=== PATIENT | male | born 1960 | race Caucasian/White ===

== ENCOUNTER 2024-01-03 18:40 | Inpatient (IN) | payer MEDICARE, SELFPAY ==
--- NOTE | 2024-01-03 18:49 | PC.NURSE ---
Pt. to the floor via EMS from [facility].
[2024-01-03 18:59] VITALS: BP 145/120; PULSE 67; RESP 20; TEMP 36.8; O2SAT 98
[2024-01-03 19:00] VITALS: BMI 38.2
--- NOTE | 2024-01-03 19:03 | XR_ITS ---
PROCEDURE INFORMATION: Exam: XR Chest Exam date and time: 01/03/2024 7:44 PM Age: 63 years old Clinical indication: Chest pressure and chest wall pain; Additional info: Chest pain TECHNIQUE: Imaging protocol: Radiologic exam of the chest. Views: 1 view. COMPARISON: No relevant prior studies available. FINDINGS: Lungs: No evidence of acute pulmonary disease or infiltrates Pleural spaces: No large effusion or pneumothorax. Heart/Mediastinum: No evidence of mediastinal widening or cardiac silhouette enlargement; the mediastinum and heart appear within normal limits for contour and size. Bones/joints: No evidence of acute osseous abnormalities within the visualized portions of the thoracic spine and ribs. Osseous structures appear appropriate for patient age. IMPRESSION: No dense parenchymal consolidation, pleural effusion, or pneumothorax.
[2024-01-03 19:30] LABS: Basophils # 0.1 K/mm3 (0-0.2); Basophils % 1.2 % (0.1-2.0); Eosinophils # 0.3 K/mm3 (0.0-0.4); Hematocrit 55.8 % (42.0-52.0); Lymphocytes # 2.5 K/mm3 (0.7-4.5); Lymphocytes % 22.6 % (10-50); Mean Corpuscular HGB Conc 32.5 g/dL (31.8-35.4); Mean Corpuscular Hemoglobin 34.4 pg (27.0-31.2); Mean Corpuscular Volume 105.9 fl (80-94); Mean Platelet Volume 8.1 fl (7.4-10.4); Monocytes # 0.7 K/mm3 (0.1-1.0); Monocytes % 6.2 % (1.7-9.3); Neutrophils # 7.4 K/mm3 (1.8-7.8); Platelet Count 374 K/mm3 (142-424); Red Blood Count 5.27 M/mm3 (4.60-6.20); Red Cell Distribution Width 13.5 % (11.5-17.5); White Blood Count 11.1 K/mm3 (4.8-10.8)
[2024-01-03 19:41] LABS: Anion Gap 12.1 mEq/L (5-15); Blood Urea Nitrogen 18 mg/dl (9-20); Calcium 9.3 mg/dl (8.4-10.2); Carbon Dioxide 27 mmol/L (22.0-30.0); Chloride 103 mmol/L (98-107); Creatinine Clearance Estimated 132 mL/min (50-200); Estimated Glomerular Filt Rate 67 ml/min (>60); GFR (African American) 81 ML/MIN (>60); Glucose 106 mg/dl (74-100); Lactic Acid 1.3 mmol/L (0.7-2.1); Potassium 5.1 mmoL/L (3.5-5.1); Sodium 137 mmol/L (136-145)
[2024-01-03] MEDS: HEPARIN SODIUM 5,000 UNIT/ML VIAL 5000 UNIT SQ (19:42)
[2024-01-03 19:43] LABS: Hemoglobin 18.1 g/dL (14.1-18.0)
--- NOTE | 2024-01-03 19:49 | P.HP_ITS ---
Attending attestation Patient was seen and evaluated at the bedside myself, agree with NAVDEEP note. History of Present Illness *Admission Date: 01/03/24 *Reason for visit:: headache *History of present illness: This is a 63-year-old male smoker with history of hypertension, atrial fibrillation HLD, who came to the ER at [facility], complaining of headache and high blood pressure. Patient stated that he forgets to claim his last 3 months medication supply. Went to the pharmacy today and found his blood pressure was 215 mmHg systolic. On arrival to the ER blood pressure was too high on atrial fibrillation with RVR. Patient denied having chest pain palpitation shortness of breath. No neurological deficits. Troponin was drawn and found to be elevated requesting transfer to our facility for cardiology eval. admitted for further workup and treatment [facility] Disclaimer: The information contained in this section may have been updated after the jacquelyn estevez was seen, as this information can be updated by other users. Medical History (Updated 01/04/24 @ 00:39 by Roel Lr APRN) Atrial fibrillation Hypertension Prediabetes Surgical History (Updated 01/03/24 @ 19:38 by Celine Staley RN) H/O splenectomy Family History (Updated 01/03/24 @ 19:38 by Celine Staley RN) Father Prostate cancer Social History (Updated 01/03/24 @ 19:39 by Celine Staley RN) Smoking Status: Current every day smoker alcohol intake: never current occupational status: retired Travel in the last 8 weeks: None Review of Systems Review of Systems Review of systems:: pertinent systems reviewed and negative unless documented below Meds Home Medications and Allergies Home Medications Medication Instructions Recorded Confirmed Type amlodipine 10 mg-benazepril 20 mg 1 cap PO DAILY HTN 01/03/24 01/03/24 History capsule apixaban 5 mg tablet (Eliquis) 5 mg PO BID 01/03/24 01/03/24 History New Prescriptions to Start Prescriptions: Allergies Allergy/AdvReac Type Severity Reaction Status Date / Time No Known Allergies Allergy Verified 01/03/24 19:39 Exam Data for Last 24 hours Vital signs and Labs for Last 24 Hours: Temp Pulse Resp BP Pulse Ox O2 Del Method 98.2 F 67 20 145/120 H 98 Room Air 01/03/24 18:59 01/03/24 18:59 01/03/24 18:59 01/03/24 18:59 01/03/24 18:59 01/03/24 18:59 Laboratory Results - last 24 hr 01/03/24 19:20: WBC 11.1 H, RBC 5.27, Hgb 18.1 H, Hct 55.8 H, MCV 105.9 H, MCH 34.4 H, MCHC 32.5, RDW 13.5, Plt Count 374, MPV 8.1, Neut % (Auto) 67.0, Lymph % (Auto) 22.6, [place] % (Auto) 6.2, Eos % (Auto) 3.0, Baso % (Auto) 1.2, Neut # (Auto) 7.4, Lymph # (Auto) 2.5, [place] # (Auto) 0.7, Eos # (Auto) 0.3, Baso # (Auto) 0.1, Sodium 137, Potassium 5.1, Chloride 103, Carbon Dioxide 27, Anion Gap 12.1, BUN 18, Creatinine 1.10, Estimated Creat Clear 132, Estimated GFR 67, Est GFR ( Amer) 81, Glucose 106 H, Lactate 1.3, Calcium 9.3 I & O for Last 24 hours: Intake & Output 12/31/23 01/01/24 01/02/24 01/03/24 23:59 23:59 23:59 23:59 Weight 138.913 kg Constitutional Constitutional: mild distress, obese and cooperative *Routine HEENT Exam Head: Present normocephalic and atraumatic Eye: Present EOMI, PERRL and normal accommodation ENT: Present mucous membranes moist *Routine Neck Exam Neck: Present supple and full ROM; Absent trachea midline *Routine Respiratory Exam Respiratory: Present CTA bilaterally, normal respiratory effort and symmetric chest movement; Absent respiratory distress *Routine Cardiovascular Exam Cardiovascular: Present Normal S1, Normal S2, tachycardia and irregularly irregular *Routine Abdominal Exam Abdominal: Present soft and normoactive bowel sounds; Absent tenderness *Routine Rectal Exam Rectal:: deferred *Routine Genitalia Exam Genitalia:: deferred *Routine Extremities Exam Extremities: Present full ROM and pulses intact; Absent cyanosis, clubbing or edema *Routine Skin Exam Skin: Present intact and warm; Absent erythema or rash *Routine Neurological Exam Neurological: Present alert, oriented X3, normal reflexes, moving all extremities and normal speech Routine Psychiatric Exam Psychiatric: Present cooperative, good insight and good judgment H&P: Result Imaging and Cardiology EKG: Status: image reviewed by me and Preliminary report Assessment and Plan *Assessment and plan (1) Atrial fibrillation with RVR: Status: Acute Category: Medical Code(s): I48.91 - Unspecified atrial fibrillation (2) NSTEMI (non-ST elevated myocardial infarction): Status: Acute Category: Medical Code(s): I21.4 - Non-ST elevation (NSTEMI) myocardial infarction (3) Hypertensive emergency: Status: Acute Category: Medical Code(s): I16.1 - Hypertensive emergency (4) HLD (hyperlipidemia): Status: Acute Qualifiers: Hyperlipidemia type: unspecified Qualified Code(s): E78.5 - Hyperlipidemia, unspecified Category: Medical Code(s): E78.5 - Hyperlipidemia, unspecified (5) Hypertension: Status: Acute Qualifiers: Hypertension type: unspecified Qualified Code(s): I10 - Essential (primary) hypertension Category: Medical Code(s): I10 - Essential (primary) hypertension (6) Current smoker: Status: Acute Category: Social Hx Code(s): F17.200 - Nicotine dependence, unspecified, uncomplicated (7) Obesity: Status: Acute Qualifiers: Obesity type: due to excess calories Obesity classification: adult class 2 (BMI 35 - 39.9) Serious obesity comorbidity presence: with serious comorbidity Body mass index: BMI 38.0-38.9 Qualified Code(s): E66.01 - Morbid (severe) obesity due to excess calories; Z68.38 - Body mass index [BMI] 38.0- 38.9, adult Category: Medical Code(s): E66.9 - Obesity, unspecified Plan 63-year-old male smoker with history of hypertension, atrial fibrillation HLD, who came to the ER at [facility], complaining of headache and high blood pressure. Patient stated that he forgets to claim his last 3 months medication supply. Went to the pharmacy today and found his blood pressure was 215 mmHg systolic. On arrival to our unit, patient still hypertensive, on A-fib with RVR. EKG reviewed. Cardiology consult. Admitted for management/. Plan is for A-fib with RVR Elevated troponin non-STEMI Admit patient for cardiac telemetry Cardiology consult Keep n.p.o. 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 Resume home medication Of note patient is not on statin Lipid profile ordered Current smoker: Education provided for smoke cessation. Nicotine patch as needed Obesity: Educated for lifestyle changes. And weight management Patient on home Eliquis. On Protonix for GI bleed prophy Full code
[2024-01-03 20:00] VITALS: BP 146/88; PULSE 72; RESP 20; TEMP 36.7; O2SAT 97
[2024-01-03 20:03] LABS: Troponin I 0.41 ng/ml (0.00-0.034)
[2024-01-04] VITALS (17 sets, daily range): BP systolic 106–165; BP diastolic 65–107; PULSE 51–85; RESP 16–20; TEMP 36.6–37.1; O2SAT 91–99; BMI 38.0
[2024-01-04 01:43] LABS: Troponin I 0.44 ng/ml (0.00-0.034)
--- NOTE | 2024-01-04 04:47 | PC.NURSE ---
Since arriving to the floor the patient has been able to rest. Patient only complaint was a headache early in the shift, but after eating a snack patient felt a lot better. Patient hasn't complained of chest pain or being SOB any this shift. Patient has rested well. No issues noted by patient
[2024-01-04 06:57] LABS: Basophils # 0.1 K/mm3 (0-0.2); Basophils % 1.1 % (0.1-2.0); Eosinophils # 0.4 K/mm3 (0.0-0.4); Eosinophils % 4.8 % (0.1-12.0); Hematocrit 54.8 % (42.0-52.0); Hemoglobin 17.2 g/dL (14.1-18.0); Lymphocytes # 2.1 K/mm3 (0.7-4.5); Lymphocytes % 25.2 % (10-50); Mean Corpuscular HGB Conc 31.4 g/dL (31.8-35.4); Mean Corpuscular Hemoglobin 33.5 pg (27.0-31.2); Mean Corpuscular Volume 106.8 fl (80-94); Mean Platelet Volume 8.6 fl (7.4-10.4); Monocytes # 0.7 K/mm3 (0.1-1.0); Monocytes % 8.1 % (1.7-9.3); Neutrophils % 60.9 % (37.0-80.0); Platelet Count 383 K/mm3 (142-424); Red Blood Count 5.13 M/mm3 (4.60-6.20); Red Cell Distribution Width 13.6 % (11.5-17.5); White Blood Count 8.1 K/mm3 (4.8-10.8)
[2024-01-04 06:57] LABS: Anion Gap 8.4 mEq/L (5-15); Blood Urea Nitrogen 16 mg/dl (9-20); Calcium 8.8 mg/dl (8.4-10.2); Carbon Dioxide 28 mmol/L (22.0-30.0); Chloride 105 mmol/L (98-107); Creatinine Clearance Estimated 132 mL/min (50-200); Estimated Glomerular Filt Rate 67 ml/min (>60); GFR (African American) 81 ML/MIN (>60); Glucose 100 mg/dl (74-100); Potassium 4.4 mmoL/L (3.5-5.1); Sodium 137 mmol/L (136-145)
[2024-01-04 07:32] LABS: Magnesium 2.3 mg/dl (1.6-2.3)
[2024-01-04 08:08] LABS: 25-OH Vitamin D, Total 18.6 ng/mL (30-100)
[2024-01-04] MEDS: LISINOPRIL 20MG TABLET 20 MG PO (08:23)
[2024-01-04] MEDS: AMLODIPINE 10MG TABLET 10 MG PO (08:23)
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
--- NOTE | 2024-01-04 08:43 | CA_ITS ---
APPROVED REPORT EXAM: Comprehensive 2D, Doppler, and color-flow Echocardiogram Manager Vehicle: Taina Arevalo [facility], RVS Ht: 6 ft 3 in Wt: 306lbs BSA: 2.63 BP: 145/120 mmHg Indications: AFIB, smoker, non-STEMI 2D Dimensions IVSd 1.19 cm LVEF (Visual) 76.00 % PWd 1.30 cm LVDd 6.27 cm LVDs 3.41 cm Left Atrium 4.24 cm M-Mode Dimensions RVDd 2.20 cm (0.9-2.6) LA Diam 5.27 cm (1.9-4.0) LVDd 5.47 cm (3.5-5.7) LVDs 4.08 cm (3.5-5.7) IVSd 1.48 cm (0.6-1.1) PWd 1.35 cm (0.6-1.1) EF (Teich) 49.60% EPSs 1.08 cm FS 25.40% EDV (Teich) 145.60 mL TAPSE 1.93 (<1.7) ESV (Teich) 73.40 mL LV Diastology E Decel Time 150 (160-240 msec) Aortic Valve DAVID Index 1.30 cm2/m2 AoV Peak Moiz. 120.0 (50-130 cm/s) AO Peak GR. 5.70 mmHg AO Mean GR. 2.80 (<5 mmHg) AO VTI 21.6 (18-25 cm) DAVID (VTI) 3.50 (2.5-4.5 cm2) Mitral Valve MV E Max Moiz. 94.0 (40-130 cm/s) MV PHT 44.0 ms Tricuspid Valve TR P. Velocity 164.00 cm/s RAP Estimate 10.00 mmHg RVSP 20.70 mmHg Left Ventricle The left ventricle is normal size. Left ventricular systolic function is mildly decreased. There is increased LV wall thickness (IVSd 1.4 cm). The septum appears asynchronous. LVEF is 40-45%. Diastolic function is indeterminate. Right Ventricle The right ventricle is normal size. The right ventricular systolic function is normal. Atria The left atrium is moderately dilated. The right atrium is moderately dilated. Aortic Valve The aortic valve is mildly thickened. There is no aortic valvular stenosis. Trace aortic regurgitation. Mitral Valve The mitral valve leaflets are mildly thickened. No evidence of mitral valve stenosis. Mild mitral regurgitation. Tricuspid Valve The tricuspid valve leaflets are thin and pliable. Trace tricuspid regurgitation. There is insufficient TR jet to estimate RVSP. Pulmonic Valve The pulmonary valve is normal in structure. Trace pulmonic regurgitation. Great Vessels The aortic root is normal in size. The ascending aorta is normal in size. IVC is normal in size and collapses >50% with inspiration. Pericardium There is no pericardial effusion. Other Information Study Quality: Fair Conclusion Mildly reduced LV systolic function (LVEF 40-45%). Increased LV wall thickness (IVSd 1.4 cm) Biatrial dilation. Mild MR. In the setting of increased LV wall thickness and biatrial dilatation, further evaluation for infiltrative disease (namely amyloidosis) is recommended. Electronically signed by : Theodora Hernandez MD 01/04/2024 12:15:54
--- NOTE | 2024-01-04 08:58 | PC.NURSE ---
Home Medications [facility] Medication Instructions Recorded Confirmed amlodipine 10 mg-benazepril 20 mg 1 cap PO DAILY HTN 01/03/24 01/03/24 capsule apixaban 5 mg tablet (Eliquis) 5 mg PO BID 01/03/24 01/03/24
--- NOTE | 2024-01-04 09:30 | IR_ITS ---
APPROVED REPORT Patient Location: Inpatient Combustion Analyst: BENNY Choe RT (R) PROCEDURES Left heart catheterization Left ventriculogram Selective coronary angiogram Bilateral selective renal angiogram INDICATION Acute non-ST elevation myocardial infarction, Malignant hypertension suspect renal artery stenosis with renovascular hypertension Informed consent was obtained prior to the procedure. COMPLICATIONS NONE Estimated Blood Loss: LESS THAN 10 ML TECHNIQUE One percent lidocaine used to anesthetize the right anterior aspect of the wrist. The right radial artery was accessed via the Seldinger technique. A 6 [place]ian sheath was placed in the right radial artery. 2.5 mg of Verapamil, 800 mcg of nitroglycerin, 1mg Lidocaine and 5000 U Heparin were given through the arterial sheath. The papa catheter was also used to perform left heart catheterization, left ventriculogram and selective coronary angiogram. A 6 [place] long JR4 catheter was used to intubate each renal artery and perform selective angiography. At the end of the procedure the sheath was removed good hemostasis was achieved using Traclet band, patient was transferred to the postop holding area in stable condition. ANGIOGRAPHIC RESULTS The left main artery Normal The left anterior descending artery Proximal 10% luminal irregularities with mid vessel concentric 30% tandem stenoses The circumflex artery Mild 10% luminal irregularities The right coronary artery Large dominant with mild 10% luminal irregularities The [place]ER[place]OD ventriculogram reveals Dilated ventricle with reduced ejection fraction estimated between 30 and 40% however patient was tachycardic and the quality was poor The left ventricular end-diastolic pressure 25 mmHg IMPRESSION Mild nonflow limiting coronary disease Dilated ventricle with ejection fraction ranging from moderate to severe. Elevated LVEDP PLAN 1. Risk factor modification for coronary artery disease 2. Patient requires better ventricular rate from the atrial fibrillation. Ejection fraction needs to be reassessed when the heart rate is less than 80. If ejection fraction is 35% or less recommend LifeVest 3. LDL less than 55 to be achieved with high intensity statin 4. Resume anticoagulation for atrial fibrillation 5. Up titration of beta-samir to control ventricular rate Electronically signed by : Ruddy Sanders MD 01/04/2024 11:09:35
--- NOTE | 2024-01-04 09:41 | P.CONPHA_ITS ---
Pharmacy Intervention Comments: MEDICATION RECONCILIATION COMPLETED ON PATIENT USING EXTERNAL FILL HISTORY FROM PHARMACY AND RECORDS FROM [facility]. -ANTONIO BELLD
--- NOTE | 2024-01-04 09:41 | HMH.PHAINT1 ---
Pharmacy Intervention Comments: MEDICATION RECONCILIATION COMPLETED ON PATIENT USING EXTERNAL FILL HISTORY FROM PHARMACY AND RECORDS FROM [facility]. -ANTONIO BELLD
[2024-01-04 09:43] LABS: Troponin I 0.27 ng/ml (0.00-0.034)
[2024-01-04] MEDS: ERGOCALCIFEROL 50,000 UNITS (1.25MG) CAPSULE 50000 UNIT PO (10:20)
[2024-01-04] MEDS: NICOTINE 21MG/24HR PATCH 21 MG TD (10:20)
[2024-01-04] MEDS: ASPIRIN 81MG CHEWABLE TABLET 81 MG PO (10:20)
[2024-01-04] MEDS: VERAPAMIL 2.5MG/ML 2ML VIAL 2.5 MG IV (10:43)
[2024-01-04] MEDS: diphenhydrAMINE 50MG/ML VIAL 50 MG IV (10:44)
[2024-01-04] MEDS: 0.9 % SODIUM CHLORIDE 500 ML 25 ML IV (10:44)
[2024-01-04] MEDS: LIDOCAINE 1% 10ML MDV 20 ML IJ (10:44)
[2024-01-04] MEDS: HEPARIN 1,000 UNITS/500ML NS (CATH LAB) 3000 UNIT IV (10:44)
[2024-01-04] MEDS: NITROGLYCERIN 800MCG/8ML SYR (CATH LAB) 800 MCG IA (10:44)
[2024-01-04] MEDS: HEPARIN 1,000 UNITS/ML 10ML VIAL (CATH LAB) 10000 UNIT IV (10:45)
[2024-01-04] MEDS: FENTANYL 100MCG/2ML VIAL 25 MCG IV (11:07)
[2024-01-04] MEDS: MIDAZOLAM HCL 1MG/1ML 5ML VIAL 1 MG IV (11:07)
[2024-01-04] MEDS: METOPROLOL TARTRATE 5MG/5ML VIAL 10 MG IV (11:08)
[2024-01-04 13:28] LABS: Chol/HDL Ratio 9.7 (1-3.5); Cholesterol 224 mg/dl (140-200); HDL Cholesterol 23 mg/dl (40-60); Triglycerides 225 mg/dl (30-150); VLDL Cholesterol 45 mg/dL (0-40)
[2024-01-04 13:39] LABS: Direct LDL Cholesterol 149.91 mg/dL (100-129)
[2024-01-04 13:46] LABS: Hemoglobin A1C 5.3 % (4.0-6.0)
--- NOTE | 2024-01-04 14:56 | PC.NURSE ---
radial band removed and non adherent/ tegaderm placed.
[2024-01-04] MEDS: IOPAMIDOL-370 (76%);100ML BOTTLE 90 ML IV (15:50)
--- NOTE | 2024-01-08 13:53 | CARE MANAGER ---
Contacted patient related to hospital discharge. Patient states he got most of his medications but PCP had to change one due to cost. Patient states that he is aware of follow up appointment with cardiology and he will let them know about the change. Patient is aware of appt. with PCP as well. Denies any questions or concerns. SUSAN Ya
--- NOTE | 2024-01-28 16:12 | EXP.DC.SUM ---
General Admission date:: 01/03/24 Discharge date: 01/04/24 HPI HPI HPI: This is a 63-year-old male smoker with history of hypertension, atrial fibrillation HLD, who came to the ER at [facility], complaining of headache and high blood pressure. Patient stated that he forgets to claim his last 3 months medication supply. Went to the pharmacy today and found his blood pressure was 215 mmHg systolic. On arrival to the ER blood pressure was too high on atrial fibrillation with RVR. Patient denied having chest pain palpitation shortness of breath. No neurological deficits. Troponin was drawn and found to be elevated requesting transfer to our facility for cardiology eval. admitted for further workup and treatment Hospital Course Hospital Course Hospital Course: 63-year-old male smoker with history of hypertension, atrial fibrillation HLD, who came to the ER at [facility], complaining of headache and high blood pressure. Patient stated that he forgets to claim his last 3 months medication supply. Went to the pharmacy today and found his blood pressure was 215 mmHg systolic. On arrival to our unit, patient still hypertensive, on A-fib with RVR. EKG reviewed. Cardiology consult. Admitted for management/. Plan is for A-fib with RVR - improved Elevated troponin non-STEMI - s/p cardaic cath, result below IMPRESSION Mild nonflow limiting coronary disease Dilated ventricle with ejection fraction ranging from moderate to severe. Elevated LVEDP PLAN 1. Risk factor modification for coronary artery disease 2. Patient requires better ventricular rate from the atrial fibrillation. Ejection fraction needs to be reassessed when the heart rate is less than 80. If ejection fraction is 35% or less recommend LifeVest 3. LDL less than 55 to be achieved with high intensity statin 4. Resume anticoagulation for atrial fibrillation 5. Up titration of beta-samir to control ventricular rate Hypertensive emergency: stable at discharge Hypertension hyperlipidemia Current smoker: Education provided for smoke cessation. Nicotine patch as needed Exam Data for Last 24 hours Vital signs and Labs for Last 24 Hours: Temp Pulse Resp BP Pulse Ox O2 Del Method 98 F 80 17 140/90 95 Room Air 01/04/24 16:25 01/04/24 16:25 01/04/24 16:25 01/04/24 16:25 01/04/24 16:25 01/04/24 16:25 Constitutional Constitutional: no acute distress *Routine HEENT Exam Head: Present normocephalic Eye: Present EOMI and PERRL ENT: Present mucous membranes moist *Routine Neck Exam Neck: Present supple; Absent lymphadenopathy *Routine Respiratory Exam Respiratory: Present CTA bilaterally *Routine Cardiovascular Exam Cardiovascular: Present RRR *Routine Abdominal Exam Abdominal: Present soft and normoactive bowel sounds; Absent tenderness *Routine Extremities Exam Extremities: Absent cyanosis, clubbing or edema *Routine Skin Exam Skin: Present warm; Absent rash *Routine Neurological Exam Neurological: Present alert and oriented X3 DS: Diagnosis Discharge Diagnosis (1) NSTEMI (non-ST elevated myocardial infarction): Status: Acute Code(s): I21.4 - Non-ST elevation (NSTEMI) myocardial infarction (2) Hypertensive emergency: Status: Acute Code(s): I16.1 - Hypertensive emergency (3) Hypertension: Status: Acute Code(s): I10 - Essential (primary) hypertension Qualifiers: Hypertension type: unspecified Qualified Code(s): I10 - Essential (primary) hypertension (4) HLD (hyperlipidemia): Status: Acute Code(s): E78.5 - Hyperlipidemia, unspecified Qualifiers: Hyperlipidemia type: unspecified Qualified Code(s): E78.5 - Hyperlipidemia, unspecified (5) Current smoker: Status: Acute Code(s): F17.200 - Nicotine dependence, unspecified, uncomplicated (6) Obesity: Status: Acute Code(s): E66.9 - Obesity, unspecified Qualifiers: Body mass index: BMI 38.0-38.9 Obesity classification: adult class 2 (BMI 35 - 39.9) Obesity type: due to excess calories Serious obesity comorbidity presence: with serious comorbidity Qualified Code(s): E66.01 - Morbid (severe) obesity due to excess calories; Z68.38 - Body mass index [BMI] 38.0-38.9, adult (7) Atrial fibrillation with RVR: Status: Acute Code(s): I48.91 - Unspecified atrial fibrillation (8) ADELINA (obstructive sleep apnea): Status: Acute Code(s): G47.33 - Obstructive sleep apnea (adult) (pediatric) (9) Vitamin D deficiency: Status: Acute Code(s): E55.9 - Vitamin D deficiency, unspecified Meds Home Medications and Allergies Home Medications Medication Instructions Recorded Confirmed Type ergocalciferol (vitamin D2) 1,250 50,000 unit PO WEEKLY 42 days #6 01/04/24 01/10/24 Rx mcg (50,000 unit) capsule caps nicotine 21 mg/24 hr daily 21 mg transdermal DAILY 30 days 01/04/24 01/10/24 Rx transdermal patch #30 ea pantoprazole 40 mg tablet,delayed 40 mg PO HS 30 days #30 tabs 01/04/24 01/10/24 Rx release apixaban 5 mg tablet (Eliquis) 5 mg PO BID Blood thinner/afib #60 01/10/24 01/10/24 Rx tabs atorvastatin 40 mg tablet 40 mg PO HS #90 tabs 01/10/24 01/10/24 Rx carvedilol 12.5 mg tablet 12.5 mg PO BID #60 tabs 01/10/24 01/10/24 Rx dapagliflozin propanediol 5 mg 5 mg PO DAILY #30 tabs 01/10/24 01/10/24 Rx tablet (Farxiga) spironolactone 25 mg tablet 12.5 mg (1/2 x 25 mg) PO DAILY #30 01/10/24 Rx (Aldactone) tabs valsartan 320 mg tablet 320 mg PO DAILY #30 tabs 01/10/24 01/10/24 Rx New Prescriptions to Start Prescriptions: ergocalciferol (vitamin D2) Lamin Yanez nicotine Beau,Lamin pantoprazole Lamin Yanez Allergies Allergy/AdvReac Type Severity Reaction Status Date / Time No Known Allergies Allergy Verified 01/10/24 09:09 Discharge Plan Disposition Patient Disposition: Home, Self-Care Condition: Good Discharge Order Discharge Orders: Discharge Order (Routine); Ordered 01/04/24 Ordered By: Lamin Yanez Follow up Plan Follow up with: Shi Miramontes [Referring] - 01/16/24 2:30 pm Ruddy Sanders MD [Staff Physician] - 01/10/24 9:15 am Prescriptions/Medication Reconciliation: New pantoprazole 40 mg Tablet,Delayed Release (Dr/Ec) 40 mg PO HS 30 Days Qty: 30 0RF nicotine 21 mg/24 hr Patch 24 Hour 21 mg transdermal DAILY 30 Days Qty: 30 0RF ergocalciferol (vitamin D2) 1,250 mcg (50,000 unit) Capsule 50,000 unit PO WEEKLY 42 Days Qty: 6 0RF Discontinued amlodipine-benazepril 10-20 mg capsule 1 cap PO DAILY Patient Comments: TAKE 1 CAPSULE BY MOUTH ONCE DAILY No Action carvedilol 12.5 mg tablet 12.5 mg PO BID Qty: 60 5RF valsartan 320 mg tablet 320 mg PO DAILY Qty: 30 3RF dapagliflozin propanediol [Farxiga] 5 mg tablet 5 mg PO DAILY Qty: 30 3RF Eliquis 5 mg tablet 5 mg PO BID Qty: 60 5RF atorvastatin 40 mg tablet 40 mg PO HS Qty: 90 3RF spironolactone [Aldactone] 25 mg tablet 12.5 mg PO DAILY Qty: 30 2RF Problem Reconciliation Problems Reviewed?: Yes Patient Discharge Instructions ACTIVITY: Ambulate as tolerated DIET: continue same diet Providers Primary Care Provider: Provider,Referral Admit Provider: Lamin Yanez Attending Provider: Lamin Yanez
== END 2024-01-04 17:43 | disposition home or self-care (01) | DRG 281 ==
PROVIDERS: Internal Medicine; Nurse Practitioner Family; Physician Assistant; Admitting Provider Internal Medicine; Visit Provider Internal Medicine
PROC: 4A023N7 Measurement of Cardiac Sampling and Pressure, Left Heart, Percutaneous Approach (ICD-10-PCS; principal; 2024-01-04 12:00)
DX: I21.4 Non-ST elevation (NSTEMI) myocardial infarction (principal); I16.1 Hypertensive emergency; I10 Essential (primary) hypertension; E78.5 Hyperlipidemia, unspecified; G47.33 Obstructive sleep apnea (adult) (pediatric); E66.01 Morbid (severe) obesity due to excess calories; I48.91 Unspecified atrial fibrillation; I25.10 Atherosclerotic heart disease of native coronary artery without angina pectoris; F17.210 Nicotine dependence, cigarettes, uncomplicated; E55.9 Vitamin D deficiency, unspecified; E66.9 Obesity, unspecified; Z68.38 Body mass index [BMI] 38.0-38.9, adult; Z80.42 Family history of malignant neoplasm of prostate; Z79.01 Long term (current) use of anticoagulants; Z79.899 Other long term (current) drug therapy
CPT/HCPCS: G0379; 36252; 36415; 71045; 80048; 80061; 82306; 83036; 83605; 83735; 84484; 85025; 93306; 93458; 99152; C1725; C1760; C1769; J1644; Q9967

== ENCOUNTER 2024-01-10 10:15 | Outpatient (CLI) | payer MEDICARE, SELFPAY ==
[2024-01-10 10:44] LABS: Basophils # 0.1 K/mm3 (0-0.2); Eosinophils # 0.6 K/mm3 (0.0-0.4); Eosinophils % 6.4 % (0.1-12.0); Hematocrit 55.3 % (42.0-52.0); Hemoglobin 17.9 g/dL (14.1-18.0); Lymphocytes # 2.5 K/mm3 (0.7-4.5); Lymphocytes % 28.4 % (10-50); Mean Corpuscular HGB Conc 32.4 g/dL (31.8-35.4); Mean Corpuscular Volume 104.9 fl (80-94); Mean Platelet Volume 8.3 fl (7.4-10.4); Monocytes # 0.6 K/mm3 (0.1-1.0); Monocytes % 7.3 % (1.7-9.3); Platelet Count 442 K/mm3 (142-424); Red Blood Count 5.27 M/mm3 (4.60-6.20); Red Cell Distribution Width 13.1 % (11.5-17.5); White Blood Count 8.8 K/mm3 (4.8-10.8)
[2024-01-10 11:02] LABS: Anion Gap 9.2 mEq/L (5-15); Blood Urea Nitrogen 20 mg/dl (9-20); Calcium 9.3 mg/dl (8.4-10.2); Carbon Dioxide 29 mmol/L (22.0-30.0); Chloride 105 mmol/L (98-107); Estimated Glomerular Filt Rate 67 ml/min (>60); GFR (African American) 81 ML/MIN (>60); Glucose 109 mg/dl (74-100); Magnesium 2.4 mg/dl (1.6-2.3); Potassium 5.2 mmoL/L (3.5-5.1); Sodium 138 mmol/L (136-145); Total Protein,Serum 6.8 g/dl (6.3-8.2)
[2024-01-10 11:34] LABS: Thyroid Stimulating Hormone 1.33 uIU/mL (0.465-4.68)
[2024-01-11 15:34] LABS: Albumin 3.2 g/dL (2.9-4.4); Alpha-1-Globulin 0.3 g/dL (0.0-0.4); Gamma Globulin 1.2 g/dL (0.4-1.8)
[2024-01-11 16:19] LABS: Immunoglobulin A, Qn 233 mg/dL (61-437); Immunoglobulin G, Qn 1065 mg/dL (603-1613); Immunoglobulin M, Qn 38 mg/dL (20-172)
[2024-01-14 16:42] LABS: Albumin, U 22.6 % (.); Alpha-1-Globulin, U 1.3 % (.); Alpha-2-Globulin, U 13.4 % (.); Beta Globulin, U 48.6 % (.); Gamma Globulin, U 14.1 % (.); M-Spike, % Comment: % (Not Observed); Protein,Total,Urine 83.9 mg/dL (Not Estab.)
[2024-01-17 09:00] LABS: PDF SCANNED IMAGE
[2024-01-17 09:01] LABS: Free Kappa Lt Chains 25.9; Free Lambda Lt Chains 16.7
[2024-01-17 09:49] LABS: PDF: SCANNED IMAGE
== END 2024-01-10 23:59 ==
PROVIDERS: Visit Provider Physician Assistant
DX: I48.91 Unspecified atrial fibrillation (principal); R93.1 Abnormal findings on diagnostic imaging of heart and coronary circulation; I50.20 Unspecified systolic (congestive) heart failure; I25.10 Atherosclerotic heart disease of native coronary artery without angina pectoris; G47.33 Obstructive sleep apnea (adult) (pediatric); E66.01 Morbid (severe) obesity due to excess calories; Z68.38 Body mass index [BMI] 38.0-38.9, adult; F17.200 Nicotine dependence, unspecified, uncomplicated; E78.5 Hyperlipidemia, unspecified; I10 Essential (primary) hypertension; I21.4 Non-ST elevation (NSTEMI) myocardial infarction; E55.9 Vitamin D deficiency, unspecified
CPT/HCPCS: 36415; 80048; 82306; 82784; 83735; 83883; 84155; 84156; 84165; 84166; 84439; 84443; 85025; 86334; 86335; 93270

== ENCOUNTER 2024-01-14 10:50 | Day surgery (SDC) | payer MEDICARE, SELFPAY ==
--- NOTE | 2024-01-14 | XR_ITS ---
FINAL REPORT CLINICAL HISTORY: STEMI FINDINGS: A single portable view of the chest was obtained. The heart size and pulmonary vascularity are within normal limits. The mediastinum is within normal limits. The left costophrenic angle is incompletely imaged. There is mild atelectasis in the right lung base. IMPRESSION: No active disease. Reviewed, Interpreted and Dictated by José Miguel Rodriguez III, MD Transcribed by Gisela Jones Authenticated and [facility]
--- NOTE | 2024-01-14 10:49 | ECG_ITS ---
APPROVED REPORT Exam: Resting ECG HR:131 bpm ECG Measurements Heart Rate 131 AXES QRSd 202 QRS -34 QT 375 T 147 QTc 452 Conclusion Acute PA Ischemic change in septal, anterior, lateral leads with depressions in 3 and aVF concerning for left main ischemia Electronically signed by : RAYMUNDO FORDE, 01/16/2024 11:26:30
[2024-01-14 10:50] VITALS: BP 104/84; PULSE 90; RESP 22; TEMP 34.3; O2SAT 90; BMI 38.1
[2024-01-14 10:54] VITALS: BMI 38.1
[2024-01-14] MEDS: FENTANYL 100MCG/2ML VIAL 50 MCG IV ×2 (10:58→13:10)
--- NOTE | 2024-01-14 10:59 | IR_ITS ---
APPROVED REPORT Patient Location: Emergent Graphics Editor: BENNY Zhang RT (R) PROCEDURES Placement of intra-aortic balloon pump INDICATION Cardiogenic shock Informed consent was obtained prior to the procedure. COMPLICATIONS None Estimated Blood Loss: Less than 10 mls TECHNIQUE 1% lidocaine used anesthetize right groin the right femoral artery was accessed via the center technique and a 6 Danish sheath is placed in the right femoral artery. Following this a long wire was extended into the transverse aorta and the 6 Danish sheath was exchanged for an 8-1/2 Danish sheath for an intra-aortic balloon pump. Under fluoroscopic guidance intra-aortic balloon pump was advanced just distal to the left subclavian artery and placed in a one-to-one manner. The apparatus was sewn into place. IMPRESSION Cardiogenic shock Successful placement of intra-aortic balloon pump PLAN 1. Treatment per primary cardiology team with consideration of transfer to [facility] versus keeping patient here Electronically signed by : Ruddy Sanders MD 01/14/2024 11:38:15
[2024-01-14 11:05] LABS: Lactate Venous 3.6 mmol/L (0.4-2.0); VBG Base Excess -4.1 mmol/L (-2.4-2.3); VBG HCO3 22.7 mmol/L (23-30); VBG Oxygen Saturation 75.9 % (50-70); VBG PCO2 50.4 mmol/L (35-51); VBG PH 7.27 mmol/L (7.31-7.41); VBG PO2 41.5 mmol/L (28-40); VBG Total CO2 24.3 mmol/L (23-27)
[2024-01-14] MEDS: DEXTROSE 50% 50ML SYRINGE (CRASH CART) 50 ML IVP (11:05)
[2024-01-14] MEDS: INSULIN HUMAN REGULAR 100 UNITS/ML 10ML VIAL 5 UNIT IVP (11:07)
[2024-01-14] MEDS: SODIUM BICARB 8.4% 50ML SYRINGE (CRASH CART) 100 MEQ IV (11:08)
--- NOTE | 2024-01-14 11:08 | PC.NURSE ---
verified heparin bolus dose 4000 units and heparin 100 units per hour, read back and verified dose with Anjelica in pharmacy
--- NOTE | 2024-01-14 11:08 | ED_ITS ---
Discharge Plan Disposition Patient Disposition: Admitted Chief Complaint: Chest Pain Prescriptions Prescriptions: No Action carvedilol 12.5 mg tablet 12.5 mg PO BID Qty: 60 5RF valsartan 320 mg tablet 320 mg PO DAILY Qty: 30 3RF dapagliflozin propanediol [Farxiga] 5 mg tablet 5 mg PO DAILY Qty: 30 3RF Eliquis 5 mg tablet 5 mg PO BID Qty: 60 5RF atorvastatin 40 mg tablet 40 mg PO HS Qty: 90 3RF spironolactone [Aldactone] 25 mg tablet 12.5 mg PO DAILY Qty: 30 2RF pantoprazole 40 mg Tablet,Delayed Release (Dr/Ec) 40 mg PO HS 30 Days Qty: 30 0RF nicotine 21 mg/24 hr Patch 24 Hour 21 mg transdermal DAILY 30 Days Qty: 30 0RF ergocalciferol (vitamin D2) 1,250 mcg (50,000 unit) Capsule 50,000 unit PO WEEKLY 42 Days Qty: 6 0RF Referrals Follow up/Referrals: Provider,Referral, MD [Primary Care Provider] - See instructions Clinical Impressions Clinical Impression: Cardiogenic shock, Chest pain Discharge ED Provider: Kamaljit Hernandez HPI General Chief Complaint: Chest Pain Stated Complaint: SYNCOPE Time Seen by Provider: 01/14/24 10:50 History of Present Illness HPI narrative: Patient is a 63-year-old male with past medical history of hypertension, heart failure reduced ejection fraction, hyperlipidemia, smoker, previous NSTEMI, no stenting who presents emergency department for evaluation of chest pain and syncope. Onset was acute, occurring earlier this morning patient had an episode of crushing substernal chest pain at rest with transient loss of consciousness. He ambulated to the [facility] where he sat down and was found by EMS with decreased responsiveness. Sats prehospital required nonrebreather to improve greater than 85%. Patient's mentation has been improving prior to arrival however his substernal chest pain persists. EKG difficult to obtain due to significant chatter prehospital however it appears that patient is having ST elevation in the lateral leads. Besides chest pain and shortness of breath patient has no other acute complaints at this time. Related Data Previous Rx's Medication Instructions Recorded ergocalciferol (vitamin D2) 1,250 50,000 unit PO WEEKLY 42 days #6 01/04/24 mcg (50,000 unit) capsule caps nicotine 21 mg/24 hr daily 21 mg transdermal DAILY 30 days 01/04/24 transdermal patch #30 ea pantoprazole 40 mg tablet,delayed 40 mg PO HS 30 days #30 tabs 01/04/24 release apixaban 5 mg tablet (Eliquis) 5 mg PO BID Blood thinner/afib #60 01/10/24 tabs atorvastatin 40 mg tablet 40 mg PO HS #90 tabs 01/10/24 carvedilol 12.5 mg tablet 12.5 mg PO BID #60 tabs 01/10/24 dapagliflozin propanediol 5 mg 5 mg PO DAILY #30 tabs 01/10/24 tablet (Farxiga) spironolactone 25 mg tablet 12.5 mg (1/2 x 25 mg) PO DAILY #30 01/10/24 (Aldactone) tabs valsartan 320 mg tablet 320 mg PO DAILY #30 tabs 01/10/24 Allergies Allergy/AdvReac Type Severity Reaction Status Date / Time No Known Allergies Allergy Verified 01/10/24 09:09 [facility] Disclaimer: The information contained in this section may have been updated after the patient was seen, as this information can be updated by other users. Medical History (Updated 01/14/24 @ 11:45 by Kamaljit Hernandez MD) Abnormal echocardiogram HFrEF (heart failure with reduced ejection fraction) Coronary artery disease Prediabetes Hypertension Atrial fibrillation Surgical History H/O splenectomy Family History Father Prostate cancer Social History Smoking Status: Current every day smoker alcohol intake: never current occupational status: retired Travel in the last 8 weeks: None ROS Obtained: Yes Systems reviewed as appropriate & no additional complaints except as documented Physical Exam General General appearance: alert and in distress Head Head exam: atraumatic and normocephalic Eye Eye exam: Present PERRL ENT ENT exam: Present mucous membranes moist Neck Neck exam: Present normal inspection Chest Chest inspection: Present normal inspection and symmetric chest wall rise Respiratory Respiratory exam: Present normal lung sounds bilaterally and other (Tachypnea, scant end expiratory wheeze) Cardiovascular Cardiovascular exam: Present normal rhythm, tachycardia and other (Cool mottled feet.) Abdominal Exam Abdominal exam: Present soft; Absent tenderness Extremities Exam Extremities exam: Present other (Cool extremities) Neurological Exam Neurological exam: Present alert Psychiatric Psychiatric exam: Present normal affect Skin Skin exam: Present dry, cyanosis and mottled HEART Score HEART Score HEART Score assessment performed?: Yes History (anamnesis): Highly suspicious ECG: Significant ST-deviation Age: 45-65 years Risk factors: 3 or more risk factors Troponin: 1-3x normal limit HEART Score: 8 Critical Care Critical Care Time Critical Care Time: Yes Attestation: On 01/14/24, the high probability of a clinically significant, sudden or life threatening deterioration of the following system(s) required my full and direct attention, intervention and personal management. The time I documented below is in addition to time spent performing reported procedures but includes the following listed in this critical care notation. Total Time Total Critical Care Time: 30 Medical Decision Making Jose Inquiry Pt receiving controlled substance: No Vital Signs Vital Signs: 01/14/24 10:50 Temperature 93.7 F L Temperature Source Core Pulse Rate [Left Radial] 90 Respiratory Rate 22 Blood Pressure [Right Arm] 104/84 L Blood Pressure Mean [Right Arm] 90 02 Sat by Pulse Oximetry 90 L Oxygen Delivery Method Non-Rebreather Oxygen Flow Rate (LPM) 15 Lab Data Labs: Lab Results 01/14/24 10:52: WBC 9.6, RBC 5.05, Hgb 17.3, Hct 54.1 H, MCV 107.1 H, MCH 34.2 H , MCHC 31.9, RDW 13.2, Plt Count 375, MPV 9.3, Neut % (Auto) 56.6, Lymph % (Auto) 28.7, [place] % (Auto) 6.8, Eos % (Auto) 6.7, Baso % (Auto) 1.3, Neut # (Auto) 5.4, Lymph # (Auto) 2.8, [place] # (Auto) 0.7, Eos # (Auto) 0.6 H, Baso # (Auto) 0.1, Sodium 138, Potassium 4.8, Chloride 108 H, Carbon Dioxide 28, Anion Gap 6.8, BUN 22 H, Creatinine 1.40 H, Estimated Creat Clear 103, Estimated GFR 51 L, Est GFR ( Amer) 62, Glucose 162 H, Calcium 9.2, Total Bilirubin 0.8, AST 34, ALT 28, Alkaline Phosphatase 116, Troponin I 0.01, Total Protein 7.0, Albumin 4.1, Globulin 2.9, Albumin/Globulin Ratio 1.4 01/14/24 10:55: VBG pH 7.27 L, VBG pCO2 50.4, VBG pO2 41.5 H, VBG HCO3 22.7 L, VBG Total CO2 24.3, VBG O2 Saturation 75.9 H, VBG Base Excess -4.1 L, VBG Lactic Acid 3.6 H 01/14/24 10:52 01/14/24 10:52 Response Orders (Tests/Meds): ED MEDICATIONS Generic Name Dose Route Start Last Admin Trade Name Freq PRN Reason Stop Dose Admin Aspirin 324 mg 01/14/24 11:28 01/14/24 11:31 Aspirin 81mg Chewable Tablet PO 01/14/24 11:29 Not Given ONCE ONE Dextrose 50 ml 01/14/24 11:25 01/14/24 11:05 Dextrose 50% 50ml Syringe (Crash Cart) IVP 01/14/24 11:26 50 ml ONCE ONE Administration Diphenhydramine HCl 50 mg 01/14/24 11:00 01/14/24 11:34 Diphenhydramine 50mg/Ml Vial IV 01/14/24 11:01 50 mg ONCE ONE Administration Fentanyl Citrate 50 mcg 01/14/24 11:00 Fentanyl 100mcg/2ml Vial IV 01/14/24 23:02 Q3MINP PRN Moderate to Severe Pain (4-10) Fentanyl Citrate 25 mcg 01/14/24 11:00 Fentanyl 250mcg/5ml Vial IV 01/14/24 23:02 Q3MINP PRN Moderate to Severe Pain (4-10) Fentanyl Citrate 50 mcg 01/14/24 11:00 Fentanyl 250mcg/5ml Vial IV 01/14/24 23:02 Q3MINP PRN Moderate to Severe Pain (4-10) Fentanyl Citrate 25 mcg 01/14/24 11:00 Fentanyl 100mcg/2ml Vial IV 01/14/24 23:02 Q3MINP PRN Moderate to Severe Pain (4-10) Fentanyl Citrate 50 mcg 01/14/24 10:58 01/14/24 10:58 Fentanyl 100mcg/2ml Vial IV 01/14/24 10:59 50 mcg ONCE ONE Administration Flumazenil 0.2 mg 01/14/24 11:00 Flumazenil 0.1mg/Ml 5ml Vial IV 01/14/24 23:02 NEEDED PRN Sedation Heparin Sodium (Porcine) 10,000 unit 01/14/24 11:00 01/14/24 11:36 Heparin 1,000 Units/Ml 10ml Vial (Telecommunications Switch Technician) IV 01/14/24 15:02 4,000 unit NEEDED PRN Administration Emergency Box Automation/Controls Manager Heparin Sodium/Sodium Chloride 3,000 unit 01/14/24 11:00 01/14/24 11:33 Heparin 1,000 Units/500ml Ns (Telecommunications Switch Technician) IV 01/14/24 11:01 3,000 unit ONCE ONE Administration Hydralazine HCl 20 mg 01/14/24 11:00 Hydralazine 20mg/Ml Vial IV 01/14/24 15:02 ONCE PRN sbp>160 Adenosine 180 mg/ Sodium 90 mls @ 747.068 mls/hr 01/14/24 11:00 Chloride IV 01/14/24 15:02 ONCE PRN fractional flow reserve 180 MCG/KG/MIN Adenosine 90 mg/ Sodium 90 mls @ 1,494.137 mls/hr 01/14/24 11:00 Chloride IV 01/14/24 15:02 ONCE PRN fractional flow reserve 180 MCG/KG/MIN Sodium Chloride 1,000 mls @ 25 mls/hr 01/14/24 11:00 01/14/24 11:34 Sod Chloride 0.9% 500ml Bag IV 01/15/24 11:02 25 mls/hr .Q25H CARLOS Administration Calcium Gluconate/Sodium Chloride 2 gm in 100 mls @ 200 mls/hr 01/14/24 11:26 01/14/24 11:11 Calcium Gluconate 2,000mg/100ml Nacl Premix IV 01/14/24 11:55 200 mls/hr ONCE ONE Administration Insulin Human Regular 5 unit 01/14/24 11:25 01/14/24 11:07 Insulin Human Regular 100 Units/Ml 10ml Vial IVP 01/14/24 11:26 5 unit ONCE ONE Administration Labetalol HCl 20 mg 01/14/24 11:00 Labetalol 20mg/4ml Syringe IV 01/14/24 15:02 ONCE PRN sbp>160 Lidocaine HCl 20 ml 01/14/24 11:00 01/14/24 11:34 Lidocaine 1% 10ml Mdv IJ 01/14/24 11:01 10 ml ONCE ONE Administration Lidocaine HCl 20 ml 01/14/24 11:00 Lidocaine 1% 5ml Pf Vial IJ 01/14/24 11:01 ONCE ONE Midazolam HCl 1 mg 01/14/24 11:00 Midazolam 2mg/2ml Vial IV 01/14/24 23:02 Q3MINP PRN Sedation Midazolam HCl 1 mg 01/14/24 11:00 Midazolam Hcl 1mg/1ml 5ml Vial IV 01/14/24 23:02 Q3MINP PRN Sedation Miscellaneous 1 each 01/14/24 11:00 Consider Pt For Dual Antiplatelet Therapy At Discharge-Stent NOTAPPLIC 02/13/24 10:59 NEEDED PRN Reminder for s/p stent Naloxone HCl 0.4 mg 01/14/24 11:00 Naloxone 0.4mg/Ml Vial IV 01/14/24 23:02 Q5MINP PRN Decreased Respirations Nitroglycerin 800 mcg 01/14/24 11:00 Nitroglycerin 800mcg/8ml Syr (Telecommunications Switch Technician) IA 01/14/24 15:02 NEEDED PRN Emergency Box Automation/Controls Manager Protamine Sulfate 50 mg 01/14/24 11:00 Protamine Sulfate 50mg/5ml Vial (Telecommunications Switch Technician) IV 01/14/24 15:02 ONCE PRN act>200 Sodium Bicarbonate 100 meq 01/14/24 11:28 01/14/24 11:08 Sodium Bicarb 8.4% 50ml Syringe (Crash Cart) IV 01/14/24 11:29 100 meq ONCE ONE Administration Sodium Chloride 10 ml 01/14/24 11:00 Sodium Chloride 0.9% 10ml Flush Syringe IV 02/13/24 10:59 NEEDED PRN Maintain IV Site Verapamil HCl 2.5 mg 01/14/24 11:00 Verapamil 2.5mg/Ml 2ml Vial IV 01/14/24 11:01 ONCE ONE ORDERS Category Date Time Status Consult to Cardiac Rehabilitation [CONS] Routine Cons 01/14/24 11:02 Active XR chest portable Routine Exams 01/14/24 Taken Complete Blood Count Auto Diff Stat Lab 01/14/24 10:52 Completed Comprehensive Metabolic Panel Stat Lab 01/14/24 10:52 Completed Lactate Venous Stat Lab 01/14/24 10:55 Completed Troponin I Q3H Lab 01/14/24 14:00 Ordered Troponin I Q3H Lab 01/14/24 17:00 Ordered Troponin I Stat Lab 01/14/24 10:52 Completed Arterial Blood Gas Routine RT 01/14/24 11:41 Received Venous Blood Gas Stat RT 01/14/24 10:55 Completed 12-lead EKG Request [ECG Request] Stat Y 01/14/24 10:55 Ordered ECG Request NEEDED Y 01/14/24 11:15 Ordered MDM Narrative Medical Decision Narrative: In summary patient is a 63-year-old male with past medical history described above who presents emergency department for evaluation of chest pain and syncope. Patient is hemodynamically stable upon arrival however was hypotensive prehospital and got 400 cc crystalloid bolus. Aspirin administered prior to arrival. Prehospital leads it appears patient is having lateral STEMI however EKG here it is difficult to ascertain due to significant widened QRS it does appear that there is significant ST elevation in the lateral and inferior leads. [id number] ultrasound at bedside shows severe biventricular failure, no large pericardial effusion (images were not saved to apartment archive therefore no note is warranted. Patient is saturating greater than 85% on nonrebreather. EKG is concerning this may be reflective of hyperkalemia after discussion with Dr. Sanders however ACS cannot be definitively ruled out and due to patient's clinical picture with cold shock patient will be transported to Telecommunications Switch Techn[facility] for immediate investigation at this time. Heparin initiated by me, no nitroglycerin due to hemodynamic tenuous state. Patient was transported to [facility] personally by me, patient is somewhat volume responsive however he is in severe biventricular failure so aggressive fluid resuscitation will certainly make matters worse and this is simply a bridge to definitive management. Patient is on nonrebreather however has acceptable saturations, is in cold shock upon arrival to the Telecommunications Switch [facility]. Further information is obtained by Telecommunications Switch Technician team, this patient had heart catheterization approximately 1 week ago with clean coronaries. Given this it is possible that patient had tacky dysrhythmia with syncope causing cardiogenic shock versus forward isolated cardiogenic shock secondary to biventricular failure given his history of heart failure with reduced ejection fraction. Further management per Telecommunications Switch Technician at this time.
[2024-01-14 11:10] LABS: Chloride 108 mmol/L (98-107); Potassium 4.8 mmoL/L (3.5-5.1); Sodium 138 mmol/L (136-145)
[2024-01-14] MEDS: HEPARIN SODIUM,PORCINE/D5W 500 ML 2 UNIT IV (11:10)
[2024-01-14 11:11] VITALS: BP 104/84; PULSE 90; RESP 20; TEMP 34.3
[2024-01-14] MEDS: CALCIUM GLUC IN NACL, ISO-OSM 2 GM/100 ML BAG IV (11:11)
[2024-01-14 11:13] LABS: Alanine Aminotransferase 28 U/L (12-78); Albumin Level 4.1 g/dl (3.5-5.0); Albumin/Globulin Ratio 1.4 (1.1-1.8); Alkaline Phosphatase 116 U/L (38-126); Anion Gap 6.8 mEq/L (5-15); Aspartate Amino Transferase 34 U/L (17-59); Bilirubin,Total 0.8 mg/dl (0.2-1.3); Blood Urea Nitrogen 22 mg/dl (9-20); Calcium 9.2 mg/dl (8.4-10.2); Carbon Dioxide 28 mmol/L (22.0-30.0); Creatinine Clearance Estimated 103 mL/min (50-200); Estimated Glomerular Filt Rate 51 ml/min (>60); GFR (African American) 62 ML/MIN (>60); Globulin 2.9 g/dL (1.3-3.2); Glucose 162 mg/dl (74-100)
--- NOTE | 2024-01-14 11:16 | PC.NURSE ---
PT IS BEING TRANSPORTED TO [facility] WITH DRIVE IN THEATER ATTENDANT,CHARGE NURSE LARRY AND ER MD GRIFFIN
--- NOTE | 2024-01-14 11:21 | PC.NURSE ---
PT WAS GIVEN 324 ASPIRIN BY EMS PRIOR TO ARRIVAL
--- NOTE | 2024-01-14 11:22 | PC.NURSE ---
1055 pt brought into ED, dylon pedroza, tanya green, erika rodriguez, lacie huerta, tanya cano, yohana blount MD at bedside 1058 MD on phone with [facility] 1058 STEMI ALERT CALLED 1058 50 of fentanyl given 1058 consent went over with pt per warehouse receiving supervisor, Selena WADE RN, consent signed 1059 respiratory at bedside 1059 mederos placed, pt being shaved, placed in gown 1100 RAD at bedside, tanya adi at bedside 1101 4000 units of heparin given 1103 warm fluids given 1105 1 amp of d50 given 1107 5 units of insulin given, 2 g calcium gluconate given 1108 2 amp of bicarb given 1110 hep gtt started 1112 pt transported to laborer livestock with andrew kaminski MD. selena medeiros, dylon delgado.
[2024-01-14 11:30] LABS: Basophils # 0.1 K/mm3 (0-0.2); Basophils % 1.3 % (0.1-2.0); Eosinophils # 0.6 K/mm3 (0.0-0.4); Eosinophils % 6.7 % (0.1-12.0); Hematocrit 54.1 % (42.0-52.0); Hemoglobin 17.3 g/dL (14.1-18.0); Lymphocytes # 2.8 K/mm3 (0.7-4.5); Lymphocytes % 28.7 % (10-50); Mean Corpuscular HGB Conc 31.9 g/dL (31.8-35.4); Mean Corpuscular Hemoglobin 34.2 pg (27.0-31.2); Mean Corpuscular Volume 107.1 fl (80-94); Mean Platelet Volume 9.3 fl (7.4-10.4); Monocytes # 0.7 K/mm3 (0.1-1.0); Monocytes % 6.8 % (1.7-9.3); Neutrophils # 5.4 K/mm3 (1.8-7.8); Neutrophils % 56.6 % (37.0-80.0); Platelet Count 375 K/mm3 (142-424); Red Blood Count 5.05 M/mm3 (4.60-6.20); Red Cell Distribution Width 13.2 % (11.5-17.5); White Blood Count 9.6 K/mm3 (4.8-10.8)
[2024-01-14 11:32] LABS: Troponin I 0.01 ng/ml (0.00-0.034)
[2024-01-14] MEDS: HEPARIN 1,000 UNITS/500ML NS (CATH LAB) 3000 UNIT IV (11:33)
[2024-01-14] MEDS: LIDOCAINE 1% 10ML MDV 20 ML IJ (11:34)
[2024-01-14] MEDS: diphenhydrAMINE 50MG/ML VIAL 50 MG IV (11:34)
[2024-01-14] MEDS: 0.9 % SODIUM CHLORIDE 500 ML 25 ML IV (11:34)
[2024-01-14] MEDS: HEPARIN 1,000 UNITS/ML 10ML VIAL (CATH LAB) 10000 UNIT IV (11:36)
[2024-01-14 11:43] LABS: ABG Base Excess -3.8 mmol/L (-2.4-2.3); ABG HCO3 21.8 mmhg (22.0-26.0); ABG Oxygen Saturation 99 % (90-100); ABG PCO2 41.9 mmhg (35.0-45.0); ABG PH 7.33 mmol/L (7.35-7.45); ABG PO2 215.4 mmhg (80-100); ABG TCO2 23.1 mmhg (23-27)
[2024-01-14 11:44] LABS: Oxygen NRB %; Source Right Femoral
--- NOTE | 2024-01-14 11:58 | PC.NURSE ---
Anjelica in pharmacy called saying the heparin dose should be 1000 units per hour, notified construction craft laborer about dose change.
[2024-01-14 12:18] LABS: PTT Heparin (inpatient only) 21.8 Seconds (23.6-34.0)
[2024-01-14 13:03] VITALS: BP 154/115; PULSE 90; O2SAT 79
[2024-01-14] MEDS: BUMETANIDE 0.25 MG/ML 10ML 4 MG IV (13:08)
[2024-01-14] MEDS: EPINEPHrine 0.1 MG/ML 10ML SYRINGE (CRASH CART) 1 MG IV ×2 (13:09→13:50)
[2024-01-14] MEDS: EPINEPHrine 5 MG in 0.9 % SODIUM CHLORIDE 250 ML 12.2400000000000002 MG IV (13:09)
[2024-01-14] MEDS: MIDAZOLAM HCL 1MG/1ML 5ML VIAL 1 MG IV (13:10)
[2024-01-14] MEDS: VECURONIUM BROM 10MG/10ML VIAL 10 MG IV (13:11)
[2024-01-14] MEDS: SUCCINYLCHOLINE 20MG/ML 10 ML MDV 100 MG IV (13:11)
--- NOTE | 2024-01-14 13:12 | PC.NURSE ---
Pt unable to sign transfer; Selena Shukla RN witness
[2024-01-14] MEDS: EPTIFIBATIDE 75 MG/100 ML VIAL 20 MG IV (13:13)
[2024-01-14] MEDS: FENTANYL CITRATE/PF 1,000 MCG in 0.9 % SODIUM CHLORIDE 80 ML 1 MCG IV (13:16)
[2024-01-14] MEDS: MIDAZOLAM HCL/PF 50 MG in 0.9 % SODIUM CHLORIDE 40 ML 2.77000000000000002 MG IV (13:17)
[2024-01-14 13:40] VITALS: RESP 24; O2SAT 79
[2024-01-14] MEDS: CLOPIDOGREL 300MG TABLET 600 MG PO (13:50)
[2024-01-14] MEDS: SODIUM BICARB 8.4% 50ML SYRINGE (CRASH CART) 50 MEQ IV (13:50)
--- NOTE | 2024-01-14 14:17 | SUR.PHASEII ---
Report to [facility], report to Kenzie at [facility] service [facility]. Patient left via [facility] staff.
[2024-01-14 15:06] LABS: Reflex Lactic Add Lactic Reflex
[2024-01-14] MEDS: IOPAMIDOL-370 (76%);100ML BOTTLE 220 ML IV (15:57)
[2024-01-14 17:03] LABS: CATHL Activated Clotting Time 280 SEC (74-125)
== END 2024-01-14 14:11 | disposition short-term general hospital (02) ==
LOC: ER 11:45 → CATHLAB 01-15 07:53
PROVIDERS: Emergency Provider Emergency Medicine; Visit Provider Internal Medicine
DX: R57.0 Cardiogenic shock (principal); I11.0 Hypertensive heart disease with heart failure; I50.30 Unspecified diastolic (congestive) heart failure; J96.01 Acute respiratory failure with hypoxia; R55 Syncope and collapse; I25.2 Old myocardial infarction; F17.210 Nicotine dependence, cigarettes, uncomplicated; I48.91 Unspecified atrial fibrillation; Z79.899 Other long term (current) drug therapy; Z79.01 Long term (current) use of anticoagulants; Z79.4 Long term (current) use of insulin; I50.82 Biventricular heart failure
CPT/HCPCS: 33967; 71045; 80053; 82803; 83605; 84484; 85025; 85347; 85730; 92928; 92973; 93005; 94002; 99152; 99153; 99291; C1725; C1769; C1876; C1894; C9600; J0330; J1327; J1644; Q9967